=== PATIENT | female | born 1995 | race Caucasian/White ===

== ENCOUNTER 2020-01-16 19:50 | Emergency (ER) | payer MEDICAID, SELFPAY ==
[2020-01-16 20:04] VITALS: BP 108/72; PULSE 112; RESP 14; TEMP 36.8; O2SAT 96; BMI 18.3
--- NOTE | 2020-01-16 21:52 | US_ITS ---
WS: [id number] TRANSABDOMINAL PELVIC AND TRANSVAGINAL PELVIC ULTRASOUND HISTORY: LLQ pain, h/o ovarian cyst COMPARISON: None available. Uterus: 6.4 cm x 4.9 cm x 3.8 cm. Anteverted uterus is normal size. No fibroid or mass. Endometrium: 1.6 cm. Mildly thickened endometrium with increased echogenicity. There is a small amoun t of fluid along the endometrial canal. At this time there is no gestational sac. Right ovary: 3.4 cm x 2.5 cm x 2.2 cm. RIGHT ovary is poorly visualized in its entirety. No abnormali ty is identified. Large amount of shadowing and peristalsing bowel gas adjacent to the ovary. Left ovary: 3.3 cm x 2.9 cm x 2.6 cm. Normal size and vascularity. There is a small corpus luteum ass ociated with the ovary. No free fluid. US/US pelvis lmt w transvag IMPRESSION: 1. No intrauterine gestation identified. Ectopic cannot be excluded with a positive beta hCG. 2. Thickened endometrium with a small amount of fluid in the endometrial canal may be changes of early intrauterine gestation.
[2020-01-16 21:56] VITALS: BP 121/76; PULSE 91; RESP 15; TEMP 37.1; O2SAT 98
[2020-01-16 22:22] LABS: Basophils % 0.2 %; Eosinophils % 0.1 %; Hematocrit 39.9 % (37.0-47.0); Hemoglobin 13.6 g/dL (11.5-15.3); Lymphocytes # 1.5 10^3/uL (0.8-4.8); Lymphocytes % 18.7 %; Mean Corpuscular HGB Conc 34.1 g/dL (30.0-36.0); Mean Corpuscular Hemoglobin 30.2 pg (28.0-34.0); Mean Corpuscular Volume 88.7 fL (81-99); Mean Platelet Volume 13.3 fL (7.4-10.4); Monocytes # 0.4 10^3/uL (0.2-0.9); Monocytes % 5.3 %; Neutrophils # 6.19 10^3/uL (1.8-7.7); Neutrophils % 75.6 %; Nucleated Red Blood Cells % 0 %; Platelet Count 221 10^3/cmm (130-400); Red Cell Distribution Width 11.9 % (12.1-15.1); White Blood Count 8.2 10^3/uL (4.0-10.0)
[2020-01-16 22:34] LABS: Alanine Aminotransferase 10 U/L (0-33); Albumin Level 4.8 g/dL (3.5-5.2); Alkaline Phosphatase 90 IU/L (35-105); Anion Gap 14.6 (5-19); Aspartate Amino Transferase 13 U/L (0-32); Blood Urea Nitrogen 6 mg/dL (6-20); Calcium 9.4 mg/dL (8.5-10.5); Carbon Dioxide 23 mmol/L (22-29); Chloride 102 mmol/L (98-107); Globulin 2.3 g/dL (1.3-4.6); Glomerular Filtration Rate 271.1 mL/min (90-130); Glucose 103 mg/dL (65-115); Lipase 27 U/L (13-60); Osmolality Calculated 280 mOsm/kg (285-295); Potassium 3.6 mmol/L (3.5-5.1); Sodium 136 mmol/L (136-145); Total Bilirubin 0.7 mg/dL (0.15-1.2); Total Protein 7.1 g/dL (6.6-8.7)
[2020-01-16 22:39] LABS: Add Urine Microscopic? YES; Bilirubin Urine Neg (Negative); Blood Urine 2+ (Negative); Glucose Urine UA Norm (Normal); Ketones Urine 2+ (Negative); Leukocyte Esterase Urine Negative (Negative); Nitrate Urine Negative (Negative); Protein Urine Neg (Negative); Specific Gravity, Urine 1.025 (1.005-1.030); Urine Appearance Hazy (CLEAR); Urine Color Yellow (Yellow); Urobilinogen Urine Norm (Negative); pH Urine 5 (5-7)
[2020-01-16 22:48] LABS: RBC Urine 0-4 /hpf (0-2)
[2020-01-16 22:49] LABS: Add Urine Culture? No; Bacteria Urine 1+ /hpf; Mucus Urine 4+ /hpf; Squamous Epithelial Cell Urine 15-25 /hpf (0-5); Transitional Epi Cells Urine 0-4 /hpf
[2020-01-16 23:00] LABS: Slide Review Slide Review Perform
--- NOTE | 2020-01-17 00:22 | W.ED.ABDPA2 ---
HPI - Abdominal Pain General: Chief Complaint: Abdominal Pain Stated Complaint: abd pain Time Seen by Provider: 01/16/20 21:47 History of Present Illness: HPI narrative: 24-year-old female patient presents to the emergency department with left lower quadrant pain since 1 AM. She reports did not take pain medication due to breast-feeding. She reports normal bowel movement today, history of ovarian cyst in the past with similar pain but reports normally rupture will occur within 4 hours and pain will dissolve. She continues in pain. She reports nausea and vomiting due to pain she is experiencing. She reports last menstrual period December 10, 2019, recent positive home test. 3, para 1, missed AB 1 MD elicited complaint: abdominal pain Pertinent past history: none Pain Consistency: intermittent Location: LLQ Severity: moderate Quality: cramping and aching Radiation: none Migration to: no migration Exacerbating factors: nothing Relieving factors: nothing Associated Symptoms: Reports no associated symptoms, GI cramping, nausea and vomiting; Denies chills, dysuria and fever(s) Related Data: Date of Last Menstrual Period: 12/11/19 Review of Systems General: Reports: 10 or more systems reviewed and unremarkable except in HPI and below Const: Denies: fever(s), chills or diaphoresis Eyes: Denies: blurry vision or eye redness ENMT: Denies: throat pain, dental pain or disequilibrium Card: Denies: chest pain, palpitations or irregular heart rhythm Resp: Denies: dyspnea, productive cough, non-productive cough or wheezing GI: Reports: abdominal pain, nausea, vomiting and GI cramping : Denies: difficulty voiding, dysuria, urinary incontinence, vaginal odor, vaginal bleeding or vaginal discharge Musc: Denies: neck pain or back pain Skin/Breast: Denies: rash or pruritus Neuro: Denies: headache(s), weakness in extremities or behavioral changes Psych: Denies: anxiety or depression Polo/Lymph: Denies: easy bruising [facility] ED Female Reproductive History: Date of last menstrual period: 12/11/19 Physical Exam Const: COMMON NORMALS: no acute distress, patient oriented x3, healthy appearing and alert GENERAL APPEARANCE: cooperative, comfortable and well hydrated HENMT: COMMON NORMALS: normocephalic, Normal external nose present and moist oral mucous membranes HEAD & SCALP: normocephalic NOSE: Normal external nose present Eye: COMMON NORMALS: Equal, round and reactive pupils present and EOMs intact bilaterally GENERAL EYE: appearance normal, both eyes and all related structures PUPIL: Yes Equal, round and reactive pupils present Neck/C-Spine: COMMON NORMALS: full ROM and no lymphadenopathy GENERAL: Yes normal visual inspection and Yes trachea midline CERVICAL SPINE: Yes cervical ROM normal Lymph: LYMPHATIC: no lymphadenopathy noted Chest: COMMONS NORMALS: normal inspection of the chest Resp: COMMON NORMALS: normal respiratory effort and clear to auscultation bilaterally AUSCULTATION: clear to auscultation bilaterally Cardio: COMMON NORMALS: regular rhythm, S1 normal heart sound present and S2 normal heart sound present RHYTHM: regular rhythm HEART SOUNDS: S1 normal heart sound present and S2 normal heart sound present GI: COMMON NORMALS: Soft to palpation INSPECTION: Yes normal to inspection PALPATION: Yes Soft to palpation, Yes Tenderness to palpation present (GI) Details: LLQ, No Splenomegaly present and No Hernia present : COMMON NORMALS: Yes no CVA tenderness, Yes normal external appearance and Yes normal appearance of the vagina BLADDER/KIDNEY EXAM: Yes no CVA tenderness EXTERNAL FEMALE EXAM: Yes normal appearance of the urethra and No Hernia present SPECULUM EXAM - CERVIX: Yes Cervical os closed, Yes mucoid cervix, Yes Abnormal cervical discharge present white and No Cervical tenderness present BIMANUAL EXAM - VAGINA & UTERUS: No Cervical tenderness present and Yes consistency normal BIMANUAL EXAM - ADNEXA, OTHER: Yes mobile, Yes normal and Yes tender on the left Back/Pelvis: COMMON NORMALS: no CVA tenderness and thoracic and lumbar spine normal to inspection Extremity: COMMON NORMALS: normal to inspection and capillary refill normal Neuro: COMMON NORMALS: patient oriented x3 and no focal motor deficits SENSORIUM/ORIENTATION: Yes alert Psych: COMMON NORMALS: mental status grossly normal, Normal thought process present and cooperative ACTIVITY/MOTOR BEHAVIOR: Yes appropriate eye contact THOUGHT PROCESS: Normal thought process present Skin: COMMON NORMALS: no rashes or lesions noted and turgor normal GENERAL SKIN EXAM: no rashes or lesions noted and turgor normal Course ED course: 24-year-old female patient presents to the emergency department with complaints of left lower pelvic pain. She reports history of ovarian cyst with similar pain. She did not require pain medication or antinausea medication during her stay in the ED. She reports her pain had completely resolved with complete resolution of nausea. Case discussed with Dr. Egly, serology and ultrasound results reviewed, 2+ blood on urinalysis without leukoesterase or nitrites, suspect possible renal colic/stone. Will have patient strain urine for kidney stone. Results discussed with the patient, plan of care discussed. She agrees to follow-up with her OB midwifery, reports pain is completely resolved and wants to go home. She agrees to return to the emergency department if she develops increased pain or new concerning symptoms. Vital Signs: Vital signs: Vital Signs Temperature 98.7 F 01/16/20 21:56 Pulse Rate 91 01/17/20 01:47 Respiratory Rate 18 01/17/20 01:47 Blood Pressure 100/81 01/17/20 01:47 Pulse Oximetry 98 01/17/20 01:47 MDM - Abdominal Pain Lab Data: Labs: Lab Results 01/16/20 01/16/20 01/16/20 Range/Units 21:15 22:02 22:02 WBC 8.2 (4.0-10.0) 10^3/ uL RBC 4.50 (4.1-5.3) 10^6/u L Hgb 13.6 (11.5-15.3) g/dL Hct 39.9 (37.0-47.0) % MCV 88.7 (81-99) fL MCH 30.2 (28.0-34.0) pg MCHC 34.1 (30.0-36.0) g/dL RDW 11.9 L (12.1-15.1) % Plt Count 221 (130-400) 10^3/c mm MPV 13.3 H (7.4-10.4) fL Neut % (Auto) 75.6 % Lymph % (Auto) 18.7 % Brantley % (Auto) 5.3 % Eos % (Auto) 0.1 % Baso % (Auto) 0.2 % Neut # (Auto) 6.19 (1.8-7.7) 10^3/u L Lymph # (Auto) 1.5 (0.8-4.8) 10^3/u L Brantley # (Auto) 0.4 (0.2-0.9) 10^3/u L Eos # (Auto) 0.0 (0.0-0.8) 10^3/u L Baso # (Auto) 0.0 (0.0-0.1) 10^3/u L Nucleated RBC % (a uto) 0 % Nucleated RBCs # 0.0 /100WBC Sodium (136-145) mmol/L Potassium (3.5-5.1) mmol/L Chloride (98-107) mmol/L Carbon Dioxide (22-29) mmol/L Anion Gap (5-19) BUN (6-20) mg/dL Creatinine (0.5-0.9) mg/dL GFR Calculation (90-130) mL/min Glucose (65-115) mg/dL Calculated Osmolal ity (285-295) mOsm/k g Calcium (8.5-10.5) mg/dL Total Bilirubin (0.15-1.2) mg/dL AST (0-32) U/L ALT (0-33) U/L Alkaline Phosphata se (35-105) IU/L Total Protein (6.6-8.7) g/dL Albumin (3.5-5.2) g/dL Globulin (1.3-4.6) g/dL Lipase (13-60) U/L Ser , Nitish i-Qnt mIU/mL Urine Color Yellow (Yellow) Urine Appearance Hazy A (CLEAR) Urine pH 5 (5-7) Ur Specific Gravit y 1.025 (1.005-1.030) Urine Protein Neg (Negative) Urine Glucose (UA) Norm (Normal) Urine Ketones 2+ H (Negative) Urine Blood 2+ H (Negative) Urine Nitrate Negative (Negative) Urine Bilirubin Neg (Negative) Urine Urobilinogen Norm (Negative) mg/dL Ur Leukocyte Andreea ase Negative (Negative) Urine RBC 0-4 H (0-2) /hpf Urine WBC None (0-5) /hpf Ur Squamous Epith Cells 15-25 H (0-5) /hpf Ur Transition Epit h Cell 0-4 /hpf Amorphous Sediment Not Reportable Urine Bacteria 1+ H (NONE) /hpf Urine Mucus 4+ /hpf Urine HCG, Qual Positive H (Negative) 01/16/20 01/16/20 Range/Units 22:02 22:02 WBC (4.0-10.0) 10^3/ uL RBC (4.1-5.3) 10^6/u L Hgb (11.5-15.3) g/dL Hct (37.0-47.0) % MCV (81-99) fL MCH (28.0-34.0) pg MCHC (30.0-36.0) g/dL RDW (12.1-15.1) % Plt Count (130-400) 10^3/c mm MPV (7.4-10.4) fL Neut % (Auto) % Lymph % (Auto) % Brantley % (Auto) % Eos % (Auto) % Baso % (Auto) % Neut # (Auto) (1.8-7.7) 10^3/u L Lymph # (Auto) (0.8-4.8) 10^3/u L Brantley # (Auto) (0.2-0.9) 10^3/u L Eos # (Auto) (0.0-0.8) 10^3/u L Baso # (Auto) (0.0-0.1) 10^3/u L Nucleated RBC % (a uto) % Nucleated RBCs # /100WBC Sodium 136 (136-145) mmol/L Potassium 3.6 (3.5-5.1) mmol/L Chloride 102 (98-107) mmol/L Carbon Dioxide 23 (22-29) mmol/L Anion Gap 14.6 (5-19) BUN 6 (6-20) mg/dL Creatinine 0.3 L (0.5-0.9) mg/dL GFR Calculation 271.1 H (90-130) mL/min Glucose 103 (65-115) mg/dL Calculated Osmolal ity 280 L (285-295) mOsm/k g Calcium 9.4 (8.5-10.5) mg/dL Total Bilirubin 0.7 (0.15-1.2) mg/dL AST 13 (0-32) U/L ALT 10 (0-33) U/L Alkaline Phosphata se 90 (35-105) IU/L Total Protein 7.1 (6.6-8.7) g/dL Albumin 4.8 (3.5-5.2) g/dL Globulin 2.3 (1.3-4.6) g/dL Lipase 27 (13-60) U/L Ser , Nitish i-Qnt 250.70 mIU/mL Urine Color (Yellow) Urine Appearance (CLEAR) Urine pH (5-7) Ur Specific Gravit y (1.005-1.030) Urine Protein (Negative) Urine Glucose (UA) (Normal) Urine Ketones (Negative) Urine Blood (Negative) Urine Nitrate (Negative) Urine Bilirubin (Negative) Urine Urobilinogen (Negative) mg/dL Ur Leukocyte Andreea ase (Negative) Urine RBC (0-2) /hpf Urine WBC (0-5) /hpf Ur Squamous Epith Cells (0-5) /hpf Ur Transition Epit h Cell /hpf Amorphous Sediment Urine Bacteria (NONE) /hpf Urine Mucus /hpf Urine HCG, Qual (Negative) Discharge Plan Discharge Patient Disposition: Home Clinical Impression: Qualifiers: Weeks of gestation: less than 8 weeks Qualified Code(s): Z3A.01 - Less than 8 weeks gestation of Abdominal pain during Qualifiers: Trimester: first trimester Qualified Code(s): O26.891 - Other specified related conditions, first trimester Condition: Stable Prescriptions: No Action No Known Home Medications RF: 0 Discharge Orders: Discharge Order (Routine); Ordered 01/17/20 Ordered By: Alisson Murguia Discharge Diet: Usual diet Discharge Activity: Resume usual activity Patient Instructions: Renal Colic (ED), Abdominal Pain (ED), Abdominal Pain in (ED) Activity Restrictions/Additional Instructions: Drink plenty of fluids Follow-up with your surgical assist as soon as possible for left lower pelvic pain, call tomorrow for an appointment, you will need to be seen this week Return to the emergency department if you develop fever, nausea vomiting, increased left lower pelvic pain Return to the emergency department if you develop vaginal bleeding Use urine strainer to strain urine Coding Level of Care Code ED Fitting Room Checker for Chg Fwd Exam Comprehensive
[2020-01-17 01:47] VITALS: BP 100/81; PULSE 91; RESP 18; O2SAT 98
== END 2020-01-17 01:52 | disposition home or self-care (01) ==
PROVIDERS: Emergency Provider Nurse Practitioner Family
DX: O26.891 Other specified pregnancy related conditions, first trimester (principal); R10.9 Unspecified abdominal pain; Z3A.01 Less than 8 weeks gestation of pregnancy
CPT/HCPCS: 12345; 76830; 76857; 80053; 81001; 81025; 83690; 84702; 85025; 87070; 87205; 87210; 99282; 99283; E0352